=== PATIENT | female | born 1940 | race Caucasian/White ===

== ENCOUNTER 2019-10-12 11:47 | Inpatient (IN) | payer MEDICARE, BC ==
[~2019-10-12] VITALS: Ht 157.5 cm; Wt 72.6 kg
[2019-10-12 12:25] LABS: BASOPHILS 0.3 % (0-2); EOSINOPHILS 0.4 % (0-7); HEMOGLOBIN 12.2 g/dL (12-16); IMMATURE GRANULOCYTES 0.2 % (0-5); LYMPHOCYTES 8.7 % (15-50); MCH 29.5 pg (26.0-34.0); MCHC 32.1 g/dL (31.0-37.0); MCV 91.8 fL (80.0-100.0); MEAN PLATELET VOLUME 9.8 fL (7.4-10.4); MONOCYTES 5.5 % (2-11); NEUTROPHILS 84.9 % (40-80); PLATELET COUNT 232 10x3/uL (130-400); RBC 4.14 10x6/uL (4.00-5.40); RDW 13.6 % (11.5-14.5); WBC 11.4 10x3/uL (4.8-10.8)
[2019-10-12 12:36] LABS: CALCIUM 9.8 mg/dL (8.5-10.1); CARBON DIOXIDE 27.5 mmol/L (21.0-32.0); POTASSIUM - SERUM 3.5 mmol/L (3.5-5.1)
[2019-10-12 12:41] LABS: ALBUMIN 4.3 g/dL (3.4-5.0); BILIRUBIN - TOTAL 1.05 mg/dL (0.2-1.3); MAGNESIUM - SERUM 1.7 mg/dL (1.8-2.4); PROTEIN - SERUM 8.4 g/dL (6.4-8.2)
[2019-10-12 13:19] LABS: APPEARANCE CLEAR (CLEAR); BILIRUBIN NEGATIVE (NEGATIVE); COLOR YELLOW (YELLOW); GLUCOSE NEGATIVE (NEGATIVE); KETONE NEGATIVE (NEGATIVE); NITRITE NEGATIVE (NEGATIVE); PROTEIN NEGATIVE (NEGATIVE); SPECIFIC GRAVITY 1.005 (1.005-1.020); UROBILINOGEN NORMAL (NORMAL)
--- NOTE | 2019-10-12 13:21 | NUR ---
EKG 1239 NSR
[2019-10-12 13:37] LABS: APTT 23.6 SECONDS (22.8-39.4); INR 0.97 (0.85-1.17); PROTIME 12.8 SECONDS (11.6-15.0)
[2019-10-12 14:05] LABS: CKMB 0.3 U/L (0.0-3.6); CREATINE KINASE 36 UL (21-215)
[2019-10-12 14:10] LABS: TROPONIN-I < 0.017 ng/mL (0.000-0.060)
--- NOTE | 2019-10-12 16:55 | MORECARE ---
CASE MANAGEMENT DISCHARGE SUMMARY PATIENT: THAIS JOHNSON UNIT: [id number] ADM DATE: 10/12/19 AGE: 78 : 42 SEX: F ROOM/BED: D.2204 AUTHOR: MARY ELLEN VALERIO PHYSICIAN: REFERRING PHYSICIAN: LISANDRA DELAROSA MD DATE OF SERVICE: 10/12/19 Discharge Plan Patient Name: THAIS [facility]OHNSON [facility] [facility] 1940 Planned Disposition: Anticipated Discharge Date: Discharge Date: Expected LOS: Initial Reviewer: [email or web address] Initial Review Date: 10/12/2019 Generated: 10/12/19 5:55 pm DCPIA - Discharge Planning Initial Assessment Updated by [email or web address]: Julissa Carranza on 10/12/19 4:50 pm * Is the patient Alert and Oriented? Yes * PCP Dr. Lakeisha Evans * Pharmacy [facility] * Preadmission Environment Home with Family * ADLs Independent * Equipment Oxygen * Other Equipment O2 @2L QHS * List name and contact numbers for known caregivers / representatives who currently or will assist patient after discharge: Marielena Michelle (dtr) [phone] * Verbal permission to speak to the caregivers and representatives has been obtained from the patient. Yes * Community resources currently utilized None * Please name any agencies selected above. NA * Additional services required to return to the preadmission environment? No * Can the patient safely return to the preadmission environment? Yes * Has this patient been hospitalized within the prior 30 days at any hospital? No Patient Name: THAIS JOHNSON Page [id number] at 1655 All edits/amendments must be made on the electronic document DICTATION DATE: 10/12/191654 FED[employer]AL JAVA DEVELOPER: TENA 10/12/191654 RPT#: [id number] DC DATE: STATUS: ADM IN [facility] [address] [place] [address] END OF REPORT
[2019-10-12] MEDS ORDERED: POT CHLORIDE TAB 10M PO (18:08)
[2019-10-12] MEDS ORDERED: FUROSEMIDE20 MG PO (18:08)
[2019-10-12] MEDS ORDERED: IMODIUM2 MG PO (18:09)
[2019-10-12] MEDS ORDERED: PROZAC40 MG PO (18:09)
[2019-10-12] MEDS ORDERED: OXYBUTYNIN CHLOR5 MG PO (18:10)
[2019-10-12] MEDS ORDERED: HYDROCODON-ACE1 EAC7 PO (18:11)
[2019-10-12] MEDS ORDERED: MOBIC7.5 MG PO (18:12)
[2019-10-12] MEDS ORDERED: PREVALITE POWD231 GM PO (18:13)
--- NOTE | 2019-10-12 18:14 | NUR ---
RECEOVED TO ROOM 2204 VIA STRETCHER FROM ER. FAMILY AT BEDSIDE. A/O X3. SKIN IS INTACT WITHOUT REDNESS. DENIES NEEDS.
[2019-10-12 20:00] VITALS: BP 142/66
[2019-10-12 21:40] VITALS: BP 142/66; BMI 29.3
--- NOTE | 2019-10-12 22:20 | NUR ---
COMPLAINTS OF IRRITATION TO BACK OF THROAT, REQUESTED CHLORASEPTIC SPRAY. GIVEN PER NOV. SEEMED TO GIVE SOME RELIEF. WILL NOTE ANY CHANGE.
--- NOTE | 2019-10-12 23:31 | NUR ---
AT 2231 COMPLAINS OF PAIN TO ABDOMEN, MORPHINE GIVEN PER ORDERS. EFFECTIVE. RESTING QUIELTY AT THIS TIME. WILL NOTE ANY CHANGE.
[2019-10-13] VITALS: BP 123/57
[2019-10-13 04:00] VITALS: BP 128/63
--- NOTE | 2019-10-13 04:40 | NUR ---
I have reviewed this patient and I concur with the Shift Assessment completed by the Licensed Practical Nurse today this shift.
--- NOTE | 2019-10-13 05:20 | NUR ---
REQUESTED MEDICATION FOR PAIN, GIVEN PER NOV. DEEMED EFFECTIVE AT THIS TIME. SHOWS NO S/S OF ANY ACUTE DISTRESS.
[2019-10-13 07:38] LABS: ALKALINE PHOSPHATASE 50 U/L (46-116); ALT (SGPT) 23 U/L (10-68); BILIRUBIN - TOTAL 0.96 mg/dL (0.2-1.3); CALCIUM 8.3 mg/dL (8.5-10.1); CARBON DIOXIDE 31.3 mmol/L (21.0-32.0); CHLORIDE - SERUM 109 mmol/L (98-107); GLUCOSE 101 mg/dL (74-106); MAGNESIUM - SERUM 1.8 mg/dL (1.8-2.4); PHOSPHOROUS 3.5 mg/dL (2.5-4.9); POTASSIUM - SERUM 3.4 mmol/L (3.5-5.1); PROTEIN - SERUM 6.4 g/dL (6.4-8.2); SODIUM 145 mmol/L (136-145)
[2019-10-13 07:39] LABS: ALBUMIN 3.2 g/dL (3.4-5.0); CALC OSMOLALITY 286 mosm/kg (275-300); CREATININE - SERUM 0.7 mg/dL (0.6-1.3); UREA NITROGEN 7 mg/dL (7-18); eGFR NON AFRICAN AMERICAN 86 mL/min (90-120)
--- NOTE | 2019-10-13 08:00 | NUR ---
ALERT AND ORIENTED X4 WITH N/G TUBE TO LOW INTERMITTANT SUCTION. ABDOMEN SOFT WITH BOWLE SOUNDS HYPOACTIVE. DENIES ANY PAIN OR DISCOMFORT AND ENCOURAGED TO USE CALL LIGHT FOR ASSIST. AWAITING FURTHER ORDERS FOR SURGERY.
[2019-10-13 09:05] LABS: BASOPHILS 0.1 % (0-2); EOSINOPHILS 0.8 % (0-7); IMMATURE GRANULOCYTES 0.3 % (0-5); MCHC 30.9 g/dL (31.0-37.0); MEAN PLATELET VOLUME 9.8 fL (7.4-10.4); NEUTROPHILS 80.8 % (40-80); RDW 13.9 % (11.5-14.5)
[2019-10-13 09:06] LABS: HEMATOCRIT 29.8 % (36.0-48.0); RBC 3.17 10x6/uL (4.00-5.40); WBC 7.5 10x3/uL (4.8-10.8)
[2019-10-13 09:07] LABS: PLATELET COUNT 169 10x3/uL (130-400)
[2019-10-13 09:08] LABS: HEMOGLOBIN 9.2 g/dL (12-16)
[2019-10-13 10:22] VITALS: BP 135/63
--- NOTE | 2019-10-13 10:30 | NUR ---
CONSENT SIGNED AND VERBALIZED U NDERSTANDING. STABLE AT TIME OF DEPARTURE WITH PREMEDICAITON DONE.
[2019-10-13 10:40] VITALS: Ht 157.5 cm; Wt 72.6 kg
[2019-10-13 11:00] LABS: % SATURATION 24 % (15-55); IRON 51 ug/dl (35-150); TOTAL IRON BIND CAPACITY 208 ug/dl (260-445); UNSAT IRON BIND CAPACITY 157 ug/dl (150-375)
--- NOTE | 2019-10-13 12:15 | NUR ---
MICHAEL NARANJO FOR OCCUPATIONAL HEALTH TECHNICIAN RELIEF.
--- NOTE | 2019-10-13 13:26 | NUR ---
DISCUSSED WITH DR RAND. CAROL TO SEND TO FLOOR ON [facility] WITH SAT >90%.
--- NOTE | 2019-10-13 13:48 | NUR ---
PT RETURNED TO ROOM ON HIFLOW 02 AT 7L WITH PULSE OX 92%. DENIES ANY PAINOR DISCOMFORT WITH N/G TUBE INTACT
[2019-10-13 17:52] VITALS: BP 148/72
--- NOTE | 2019-10-13 19:28 | NUR ---
IN BED WITH TELEVISION ON. NO S/S OF ANY ACUTE DISTRESS. ABLE TO VOICE ALL NEEDS. DENIES PAIN. REQUESTS ICE CHIPS, GRANTED. SHOWS NO S/S OF ANY ACUTE DISTRESS. WILL NOTE ANY CHANGE.
[2019-10-14 04:00] VITALS: BP 127/65
--- NOTE | 2019-10-14 05:13 | NUR ---
I have reviewed this patient and I concur with the Shift Assessment completed by the Licensed Practical Nurse today this shift.
[2019-10-14 06:44] LABS: BASOPHILS 0.2 % (0-2); EOSINOPHILS 0.4 % (0-7); HEMATOCRIT 28.3 % (36.0-48.0); HEMOGLOBIN 8.7 g/dL (12-16); IMMATURE GRANULOCYTES 0.6 % (0-5); LYMPHOCYTES 15.9 % (15-50); MCH 29.2 pg (26.0-34.0); MCHC 30.7 g/dL (31.0-37.0); MEAN PLATELET VOLUME 9.8 fL (7.4-10.4); MONOCYTES 11.7 % (2-11); NEUTROPHILS 71.2 % (40-80); PLATELET COUNT 141 10x3/uL (130-400); RBC 2.98 10x6/uL (4.00-5.40); RDW 14.1 % (11.5-14.5)
[2019-10-14 06:49] LABS: WBC 5.2 10x3/uL (4.8-10.8)
[2019-10-14 07:02] LABS: ALBUMIN 2.8 g/dL (3.4-5.0); ALKALINE PHOSPHATASE 44 U/L (46-116); ALT (SGPT) 21 U/L (10-68); BILIRUBIN - TOTAL 0.85 mg/dL (0.2-1.3); CALC OSMOLALITY 281 mosm/kg (275-300); CALCIUM 7.5 mg/dL (8.5-10.1); CARBON DIOXIDE 28.3 mmol/L (21.0-32.0); CHLORIDE - SERUM 107 mmol/L (98-107); CREATININE - SERUM 0.6 mg/dL (0.6-1.3); GLUCOSE 95 mg/dL (74-106); MAGNESIUM - SERUM 1.6 mg/dL (1.8-2.4); PHOSPHOROUS 2.8 mg/dL (2.5-4.9); POTASSIUM - SERUM 3.6 mmol/L (3.5-5.1); SODIUM 143 mmol/L (136-145); eGFR NON AFRICAN AMERICAN > 90 mL/min (90-120)
[2019-10-14 07:13] LABS: UREA NITROGEN 5 mg/dL (7-18)
--- NOTE | 2019-10-14 09:00 | NUR ---
ALERT AND ORIENTED X4. N/G TUBE REMOVED PER ORDER. WITH O2 5L PER N/C WITH PULSE OX 90%. BREATH SOUNDS DIMINISHED X4 BUT CLEAR. HRRR WITH NO PERIPHERAL EDEMA NOTED. AMBULATES WITH WALKER IN ROOM TO BATHROOM. ENCOURAGED TO USE CALL LIGHT FOR ASSIST.
[2019-10-14 09:40] VITALS: BP 125/55
[2019-10-14 13:46] VITALS: BP 129/66
[2019-10-14 17:43] VITALS: BP 129/65
[2019-10-14 20:00] VITALS: BP 155/71
--- NOTE | 2019-10-14 20:45 | NUR ---
WATCHING TV QUEITLY WITH NO DISTRESS NOTED. RESP EVEN AND UNALBORED. NO COMPLAINTS VOICED. CL IN REACH
--- NOTE | 2019-10-15 06:48 | NUR ---
I have reviewed this patient and I concur with the Shift Assessment completed by the Licensed Practical Nurse today this shift.
[2019-10-15 07:02] LABS: ALBUMIN 2.8 g/dL (3.4-5.0); ALKALINE PHOSPHATASE 48 U/L (46-116); ALT (SGPT) 21 U/L (10-68); BILIRUBIN - TOTAL 0.73 mg/dL (0.2-1.3); CALC OSMOLALITY 283 mosm/kg (275-300); CALCIUM 7.6 mg/dL (8.5-10.1); CARBON DIOXIDE 31.4 mmol/L (21.0-32.0); CHLORIDE - SERUM 108 mmol/L (98-107); CREATININE - SERUM 0.6 mg/dL (0.6-1.3); GLUCOSE 103 mg/dL (74-106); MAGNESIUM - SERUM 1.5 mg/dL (1.8-2.4); PHOSPHOROUS 2.6 mg/dL (2.5-4.9); POTASSIUM - SERUM 3.2 mmol/L (3.5-5.1); PROTEIN - SERUM 5.9 g/dL (6.4-8.2); SODIUM 144 mmol/L (136-145); eGFR NON AFRICAN AMERICAN > 90 mL/min (90-120)
[2019-10-15 07:03] LABS: UREA NITROGEN 3 mg/dL (7-18)
[2019-10-15 07:11] LABS: BASOPHILS 0.3 % (0-2); EOSINOPHILS 1.7 % (0-7); HEMATOCRIT 27.9 % (36.0-48.0); HEMOGLOBIN 8.6 g/dL (12-16); IMMATURE GRANULOCYTES 0.3 % (0-5); LYMPHOCYTES 15.8 % (15-50); MCHC 30.8 g/dL (31.0-37.0); MCV 93.9 fL (80.0-100.0); MEAN PLATELET VOLUME 9.8 fL (7.4-10.4); MONOCYTES 13.1 % (2-11); NEUTROPHILS 68.8 % (40-80); PLATELET COUNT 152 10x3/uL (130-400); RBC 2.97 10x6/uL (4.00-5.40); RDW 13.6 % (11.5-14.5)
--- NOTE | 2019-10-15 09:00 | NUR ---
ALERT AND ORIENTED X4. ABDOMEN SOFT WITH BOWEL SOUNDS WITH DRESSING INTACT. LV TO LEFT HAND INFUSING AT PRESCRIBED RATE WITH NO S/S OF INFECTION/INFILTRATION. O2 5L HI-FLOW.. AMBUALTES WITH WALKER WHT SBA. ENCOURAGTED TO USE CALL LIGHT FOR ASSIT.
[2019-10-15 09:21] VITALS: BP 138/69
--- NOTE | 2019-10-15 12:08 | NUR ---
1000 TX LATE DUE TO CODE BLUE IN CVICU
[2019-10-15 12:25] VITALS: BP 144/68
[2019-10-15] MEDS ORDERED: LEVOFLOXACIN500 MG PO (12:49)
[2019-10-15] MEDS ORDERED: MILK OF MAGNESI30 ML PO (12:50)
[2019-10-15 16:42] VITALS: BP 135/61
--- NOTE | 2019-10-15 18:08 | NUR ---
PATIENT'S IV DISCONTINUED AND VERBALIZED UNDERSTANDING OF DISCHARGE INSTRUCTIONS. STABLE AT TIME OF DEPARTURE UNDER THE CARE OF DAUGHTER.
--- NOTE | 2019-10-15 19:12 | MORECARE ---
CASE MANAGEMENT DISCHARGE SUMMARY PATIENT: THAIS JOHNSON UNIT: [id number] ADM DATE: 10/12/19 AGE: 78 : 42 SEX: F ROOM/BED: D.2204 AUTHOR: MARY ELLEN VALERIO PHYSICIAN: REFERRING PHYSICIAN: LISANDRA DELAROSA MD DATE OF SERVICE: 10/15/19 Discharge Plan Patient Name: THAIS JOHNSON Facility: [facility]:[place] : 1940 Planned Disposition: Anticipated Discharge Date: Discharge Date: 10/15/2019 Expected LOS: Initial Reviewer: [email or web address] Initial Review Date: 10/12/2019 Generated: 10/15/19 8:11 pm DCPIA - Discharge Planning Initial Assessment Updated by [email or web address]: Julissa Carranza on 10/12/19 4:50 pm * Is the patient Alert and Oriented? Yes * PCP Dr. Lakeisha Evans * Pharmacy [facility] * Preadmission Environment Home with Family * ADLs Independent * Equipment Oxygen * Other Equipment O2 @2L QHS * List name and contact numbers for known caregivers / representatives who currently or will assist patient after discharge: Marielena Michelle (dtr) [phone] * Verbal permission to speak to the caregivers and representatives has been obtained from the patient. Yes * Community resources currently utilized None * Please name any agencies selected above. NA * Additional services required to return to the preadmission environment? No * Can the patient safely return to the preadmission environment? Yes * Has this patient been hospitalized within the prior 30 days at any hospital? No Last DP export: 10/12/19 3:55 p Patient Name: THAIS JOHNSON Page [id number] at 1912 All edits/amendments must be made on the electronic document DICTATION DATE: 10/15/191910 PATIENT OMBUDSPERSON: TENA 10/15/191910 RPT#: [id number] DC DATE:10/15/19 STATUS: DIS IN [facility] [address] [place] [address] END OF REPORT
--- NOTE | 2019-10-17 10:48 | OP ---
PATIENT NAME: THAIS JOHNSON MEDICAL RECORD: [id number] :42 LOCATION:D.MS [id number] ADMISSION DATE:10/12/19 SURGEON: VIVI LOPEZ MD DATE OF OPERATION: 10/13/2019 PREOPERATIVE DIAGNOSES: 1. Gastric outlet obstruction. 2. Mesenteric lymphadenitis. 3. Leukocytosis. POSTOPERATIVE DIAGNOSES: 1. Gastric outlet obstruction. 2. Mesenteric lymphadenitis. 3. Leukocytosis. PROCEDURE: EGD with biopsy. FINDINGS: Food bolus in the third portion of the duodenum. SURGEON: Vivi Lopez MD REPORT OF PROCEDURE: Olympus endoscope was advanced through the mouth and esophagus. The patient had an indwelling nasogastric tube, which was sitting right at the end of the patient's esophagus, but not very well in the stomach. As we passed through the stomach, there was noted be a large amount of fluid within the stomach. We pulled out about 500 cc of bilious fluid as we passed through the stomach and the pylorus, we encountered a large amount of fluid in the proximal portion of the duodenum. As we passed through the duodenum, I could see the ampulla and just distal to the ampulla, there was a food bolus present. This food bolus appear to be the point of obstruction. It was mobile within the duodenum. I was able to cremate lot of the food bolus and break it down in order to make it much smaller. Once the food bolus was broken down, attempts were made to pull it out, but it was too loose to be able to pull out, went ahead and just irrigated out this area as much as possible and left some irrigant in the duodenum. I was able to pass the food bolus and get to the third portion of the duodenum, which appeared to be normal with no signs of any masses or extrinsic lesions. The duodenum did not open up very easily with insufflation, but there was an opening present that would pass distal. No distinct ulcerations were noted anywhere throughout the GI tract. Eventually pulled back the scope and repositioned the NG tube in a good position in the antrum of the stomach. A biopsy was taken on the third portion of the duodenum and the antrum of the stomach. At this point, the scope was removed. COMPLICATIONS: None. CONDITION: Stable. ANESTHESIA: General endotracheal. BLOOD LOSS: Minimal. TRANSINT:[id number] Voice Confirmation ID: [id number] DOCUMENT ID: [id number] OPERATIVE REPORT [id number] THAIS JOHNSON CHRISTIAN MD at 1048 CC: [id number] DICTATION DATE: 10/13/19 1225 INSURANCE RISK SURVEYOR: 10/13/192058 DIS IN 10/15/19 [place] [id number] [place] [id number]
== END 2019-10-15 18:08 | disposition home or self-care (01) | DRG 381 ==
LOC: D.ER 11:47 → D.MS 16:18
PROVIDERS: Emergency Medicine; Surgery; ADMIT Internal Medicine Nephrology; ATTEND Internal Medicine Nephrology
PROC: 0DB98ZX Excision of Duodenum, Via Natural or Artificial Opening Endoscopic, Diagnostic (ICD-10-PCS; 2019-10-13)
PROC: 0DB78ZX Excision of Stomach, Pylorus, Via Natural or Artificial Opening Endoscopic, Diagnostic (ICD-10-PCS; 2019-10-13)
PROC: 0DB98ZX Excision of Duodenum, Via Natural or Artificial Opening Endoscopic, Diagnostic (ICD-10-PCS; 2019-10-13)
PROC: 0DC98ZZ Extirpation of Matter from Duodenum, Via Natural or Artificial Opening Endoscopic (ICD-10-PCS; principal; 2019-10-13 11:00)
DX: K31.1 Adult hypertrophic pyloric stenosis (principal); D62 Acute posthemorrhagic anemia; I88.0 Nonspecific mesenteric lymphadenitis; K83.8 Other specified diseases of biliary tract; E83.42 Hypomagnesemia